=== PATIENT | female | born 1950 | race Caucasian/White ===

== ENCOUNTER → 2016-05-29 | Outpatient (CLI) | payer MEDICAID ==
[2016-05-29 10:25] LABS: ALT 34 U/L (9-52); AST 36 U/L (14-36); Alkaline Phosphatase 81 U/L (38-126); Anion Gap 11 mmol/L; Blood Urea Nitrogen 16 mg/dL (7-17); Calcium 9.2 mg/dL (8.4-10.2); Carbon Dioxide 25 mmol/L (22-30); Chloride 109 mmol/L (98-107); Cholesterol 136 mg/dL (<200); Glucose 88 mg/dL (74-99); HDL Cholesterol 73 mg/dL (40-60); Non-African American GFR(MDRD) >60 (>60 ml/min/1.73 sqM); Potassium 4.4 mmol/L (3.5-5.1); Sodium 145 mmol/L (137-145); Total Bilirubin 0.7 mg/dL (0.2-1.3); Triglycerides 82 mg/dL (<150)
== END ==
LOC: LABWHC1 09:13
PROVIDERS: ATTEND Internal Medicine Interventional Cardiology
DX: E78.5 Hyperlipidemia, unspecified (principal); E55.9 Vitamin D deficiency, unspecified
CPT/HCPCS: 36415; 80053; 80061; 82306

== ENCOUNTER → 2016-12-29 | Outpatient (CLI) | payer MEDICAID ==
--- NOTE | 2017-01-01 10:31 | MM ---
Reason for exam: screening (asymptomatic). Last mammogram was performed 1 year and 2 months ago. History: Patient is postmenopausal and has history of other cancer at age 52. Physical Findings: A clinical breast exam by your physician is recommended on an annual basis and results should be correlated with mammographic findings. MG 3D Screening Mammo W/Cad Bilateral CC and MLO view(s) were taken. Prior study comparison: October 29, 2015, bilateral MG screening mammo w CAD. October 27, 2014, bilateral MG screening mammo w CAD. The breast tissue is heterogeneously dense. This may lower the sensitivity of mammography. Stable benign calcifications. There is no discrete abnormality. No significant changes when compared with prior studies. ASSESSMENT: Benign, BI-RAD 2 RECOMMENDATION: Routine screening mammogram of both breasts in 1 year.
== END | disposition home or self-care (01) ==
LOC: RADMAMWWP 08:47
PROVIDERS: ATTEND Obstetrics & Gynecology
DX: Z12.31 Encounter for screening mammogram for malignant neoplasm of breast (principal)
CPT/HCPCS: 77063; G0202

== ENCOUNTER → 2017-02-20 | Outpatient (CLI) | payer MEDICAID ==
--- NOTE | 2017-02-20 15:08 | US ---
EXAMINATION TYPE: US pelvic complete DATE OF EXAM: 02/20/2017 COMPARISON: NONE CLINICAL HISTORY: Z01.411 POSS RT OVARIAN MASS. Right pelvic mass per patients physician, 2, para 2 TECHNIQUE: Transabdominal (TA) Date of LMP: 16+ years ago EXAM MEASUREMENTS: Uterus: 7.3 x 3.1 x 5.3 cm Endometrial Stripe: 0.4 cm Right Ovary: 2.4 x 1.6 x 2.1 cm Left Ovary: 2.4 x 1.3 x 1.6 cm 1. Uterus: anteverted, heterogeneous 2. Endometrium: wnl 3. Right Ovary: wnl 4. Left Ovary: wnl 5. Bilateral Adnexa: wnl 6. Posterior cul-de-sac: wnl IMPRESSION: 1. No evidence of ovarian mass. 2. Echo pattern of the uterine myometrium is somewhat heterogeneous which is nonspecific. No discrete fibroids are seen. Correlate clinically and if necessary with MRI.
== END | disposition home or self-care (01) ==
LOC: RADUSWWP 14:31
PROVIDERS: ATTEND Obstetrics & Gynecology
DX: Z01.411 Encounter for gynecological examination (general) (routine) with abnormal findings (principal)
CPT/HCPCS: 76856

== ENCOUNTER → 2017-06-26 | Outpatient (CLI) | payer MEDICAID ==
[2017-06-26 10:19] LABS: HCT 42.2 % (34.0-46.0); HGB 14.1 gm/dL (11.4-16.0); MCHC 33.5 g/dL (31.0-37.0); MCV 92.5 fL (80.0-100.0); Platelet Count 246 k/uL (150-450); RBC 4.56 m/uL (3.80-5.40); RDW 12.6 % (11.5-15.5); WBC 6.3 k/uL (3.8-10.6)
[2017-06-26 10:32] LABS: ALT 32 U/L (9-52); AST 33 U/L (14-36); Albumin 4.2 g/dL (3.5-5.0); Alkaline Phosphatase 82 U/L (38-126); Anion Gap 12 mmol/L; Blood Urea Nitrogen 16 mg/dL (7-17); Calcium 9.2 mg/dL (8.4-10.2); Carbon Dioxide 27 mmol/L (22-30); Chloride 106 mmol/L (98-107); Cholesterol 131 mg/dL (<200); Glucose 90 mg/dL (74-99); HDL Cholesterol 60 mg/dL (40-60); LDL Cholesterol,Calculated 54 mg/dL (0-99); Potassium 4.1 mmol/L (3.5-5.1); Sodium 145 mmol/L (137-145); Total Bilirubin 0.4 mg/dL (0.2-1.3); Total Protein 6.5 g/dL (6.3-8.2); Triglycerides 85 mg/dL (<150)
== END ==
LOC: LABWHC1 09:45
PROVIDERS: ATTEND Nurse Practitioner Adult Health
DX: E78.5 Hyperlipidemia, unspecified (principal); I10 Essential (primary) hypertension
CPT/HCPCS: 36415; 80053; 80061; 85027

== ENCOUNTER → 2018-01-14 | Outpatient (CLI) | payer MEDICAID ==
--- NOTE | 2018-01-15 13:12 | MM ---
Reason for exam: screening (asymptomatic). Last mammogram was performed 1 year and 1 month ago. History: Patient is postmenopausal and has history of other cancer at age 52. Physical Findings: A clinical breast exam by your physician is recommended on an annual basis and results should be correlated with mammographic findings. MG 3D Screening Mammo W/Cad Bilateral CC and MLO view(s) were taken. Prior study comparison: December 29, 2016, bilateral MG 3d screening mammo w/cad. October 29, 2015, bilateral MG screening mammo w CAD. There are scattered fibroglandular densities. No significant changes when compared with prior studies. ASSESSMENT: Benign, BI-RAD 2 RECOMMENDATION: Routine screening mammogram of both breasts in 1 year.
== END | disposition home or self-care (01) ==
LOC: RADMAMWWP 15:24
PROVIDERS: ATTEND Obstetrics & Gynecology
DX: Z12.31 Encounter for screening mammogram for malignant neoplasm of breast (principal)
CPT/HCPCS: 77063; 77067

== ENCOUNTER → 2018-12-16 | Outpatient (CLI) | payer MEDICAID ==
[2018-12-16 17:44] LABS: Chol/HDL Ratio 2.44
== END | disposition home or self-care (01) ==
LOC: LABWHC1 09:34
PROVIDERS: ATTEND Internal Medicine Interventional Cardiology
DX: E78.2 Mixed hyperlipidemia (principal)
CPT/HCPCS: 36415; 80061; 84450; 84460

== ENCOUNTER → 2019-10-03 | Outpatient (CLI) | payer MEDICAID ==
--- NOTE | 2019-10-03 18:39 | ECHOF ---
Referral Reason:I25.10 I10 hypertension MEASUREMENTS -------- HEIGHT: 165.1 cm WEIGHT: 63.5 kg BP: RVIDd: 2.7 cm (< 3.3) IVSd: 1.3 cm (0.6 - 1.1) LVIDd: 3.2 cm (3.9 - 5.3) LVPWd: 1.2 cm (0.6 - 1.1) IVSs: 1.4 cm LVIDs: 2.6 cm LVPWs: 1.4 cm LA Diam: 3.0 cm (2.7 - 3.8) LAESV Index (A-L): 21.08 ml/m Ao Diam: 3.5 cm (2.0 - 3.7) AV Cusp: 1.9 cm (1.5 - 2.6) MV EXCURSION: 18.525 mm (> 18.000) MV EF SLOPE: 102 mm/s (70 - 150) EPSS: 0.3 cm MV E Azar: 0.81 m/s MV DecT: 140 ms MV A Azar: 0.82 m/s MV E/A Ratio: 0.99 RAP: 5.00 mmHg RVSP: 27.81 mmHg FINDINGS -------- Sinus rhythm. This was a technically good study. The left ventricular size is normal. There is mild concentric left ventricular hypertrophy. Overa ll left ventricular systolic function is normal with, an EF between 55 - 60 %. The right ventricle is normal in size. The left atrial size is normal. The right atrial size is normal. The aortic valve is trileaflet, and appears structurally normal. No aortic stenosis or regurgitation. Mild mitral regurgitation is present. Mild tricuspid regurgitation present. Right ventricular systolic pressure is normal at < 35 mmHg. Trace/mild (physiologic) pulmonic regurgitation. The aortic root size is normal. There is no pericardial effusion. CONCLUSIONS -------- 1. The left ventricular size is normal. 2. There is mild concentric left ventricular hypertrophy. 3. Overall left ventricular systolic function is normal with, an EF between 55 - 60 %. 4. The right ventricle is normal in size. 5. The left atrial size is normal. 6. The right atrial size is normal. 7. Mild mitral regurgitation is present. 8. Mild tricuspid regurgitation present. 9. Trace/mild (physiologic) pulmonic regurgitation. ENERGY EFFICIENCY ENGINEER: Sosa Suazo RDCS
== END | disposition home or self-care (01) ==
LOC: RADECHMAIN 10:28
PROVIDERS: ATTEND Internal Medicine Interventional Cardiology
DX: I08.1 Rheumatic disorders of both mitral and tricuspid valves (principal); I25.10 Atherosclerotic heart disease of native coronary artery without angina pectoris
CPT/HCPCS: 93306

== ENCOUNTER → 2019-10-23 | Outpatient (CLI) | payer OTHER ==
--- NOTE | 2019-10-23 15:29 | XR ---
EXAMINATION TYPE: XR pelvis AP view DATE OF EXAM: 10/23/2019 CLINICAL HISTORY: pain TECHNIQUE: Single view the pelvis is submitted. FINDINGS: No evidence for fracture, dislocation or bony lesion. Joint spaces are well-preserved. S I joints appear symmetric. IMPRESSION: 1. No acute fracture or dislocation seen. ICD 10 NO FRACTURE, INITIAL EVALUATION
--- NOTE | 2019-10-23 15:31 | XR ---
EXAMINATION TYPE: XR knee complete RT DATE OF EXAM: 10/23/2019 CLINICAL HISTORY: pain TECHNIQUE: Three views of the right knee are obtained. COMPARISON: None. FINDINGS: There is no acute fracture/dislocation. Prepatellar soft tissue swelling. Small suprapatel lar joint effusion. IMPRESSION: There is no acute fracture or dislocation.ICD 10 NO FRACTURE, INITIAL EVALUATION
== END | disposition home or self-care (01) ==
LOC: RADXRMAIN 15:08
PROVIDERS: ATTEND Emergency Medicine
DX: S30.0XXA Contusion of lower back and pelvis, initial encounter (principal); S80.01XA Contusion of right knee, initial encounter
CPT/HCPCS: 72170

== ENCOUNTER → 2020-02-20 | Outpatient (CLI) | payer MEDICAID, OTHER ==
--- NOTE | 2020-02-20 11:04 | XR ---
EXAMINATION TYPE: XR knee complete RT DATE OF EXAM: 02/20/2020 COMPARISON: None HISTORY: Pain contusion TECHNIQUE: Right knee is examined in 3 views FINDINGS: There may be some mild narrowing of the lateral compartment joint space. Very minimal media l tibial plateau spurring is present. Medial femoral condylar spurring is present. Soft tissues appea r normal. Patellofemoral joint space is preserved. No joint effusion is evident. IMPRESSION: 1. No acute or subacute osseous abnormality. 2. Very minimal degenerative joint changes right knee
== END | disposition home or self-care (01) ==
LOC: RADXRMAIN 10:41
PROVIDERS: ATTEND Emergency Medicine
DX: M17.11 Unilateral primary osteoarthritis, right knee (principal)

== ENCOUNTER → 2020-02-23 | Outpatient (CLI) | payer OTHER ==
--- NOTE | 2020-02-24 06:42 | MR ---
EXAMINATION TYPE: MR knee RT wo con DATE OF EXAM: 02/23/2020 COMPARISON: Right knee x-ray February 20, 2020. HISTORY: Contusion of right knee with pain. TECHNIQUE: Multiplanar, multisequence imaging of the right knee is performed without IV contrast. FINDINGS: MEDIAL MENISCUS: Anterior and posterior horns are intact without tear. LATERAL MENISCUS: Posterior horn is intact without tear. Anterior horn shows horizontal increased sig nal does not extend to articular surface, accessory ligament felt present versus intrasubstance tear. CRUCIATE LIGAMENTS: The anterior and posterior cruciate ligaments are intact and unremarkable. COLLATERAL LIGAMENTS: The medial collateral ligament and lateral collateral ligament complex are inta ct and unremarkable. EXTENSOR MECHANISM: Visualized quadriceps and patellar tendons are intact. EFFUSION: Small suprapatellar joint effusion. POPLITEAL CYST : Moderate to large size popliteal/li cyst measuring 5.8 cm long axis sagittal imag e 13. TRICOMPARTMENT SPACES: There is fairly severe patellofemoral compartment joint space loss with mild/m oderate spurring. More moderate narrowing medial tibiofemoral compartment with brti-bs-[id number] spurr ing. Mild narrowing and spurring lateral tibiofemoral compartment. CARTILAGE: Significant chondromalacia patella with full-thickness cartilaginous loss along inferior h darwin of the posterior patellar pole. Cartilaginous thinning medial tibiofemoral compartment without fu ll-thickness loss. BONE MARROW SIGNAL: There is a heterogeneous diminished T1 and increased T2 signal anterior tibial as pect distal lateral femoral condyle and areas of increased T2 signal posterior inferior patellar pole at site of full-thickness cartilaginous loss. OTHER: No additional significant abnormality is appreciated. IMPRESSION: 1. Advanced patellofemoral joint arthropathy as detailed above. 2. Moderate to large sized popliteal cyst. 3. No full-thickness Meniscal or ligamentous tear. 4. Small suprapatellar joint effusion.
== END | disposition home or self-care (01) ==
LOC: RADMRIMAIN 16:09
PROVIDERS: ATTEND Emergency Medicine
DX: M12.861 Other specific arthropathies, not elsewhere classified, right knee (principal); M71.21 Synovial cyst of popliteal space [Baker], right knee

== ENCOUNTER → 2020-08-06 | Outpatient (CLI) | payer MEDICAID ==
[2020-08-06 16:28] LABS: Chol/HDL Ratio 2.26; LDL Cholesterol,Calculated 58.4 mg/dL (0.0-131.0); VLDL Calculation 18.6 mg/dL (5.00-40.00)
== END | disposition home or self-care (01) ==
LOC: LABWHC1 10:20
PROVIDERS: ATTEND Internal Medicine Interventional Cardiology
DX: E78.2 Mixed hyperlipidemia (principal)
CPT/HCPCS: 36415; 80061; 84450; 84460

== ENCOUNTER → 2020-09-28 | Outpatient (CLI) | payer MEDICAID ==
--- NOTE | 2020-09-28 15:16 | BD ---
EXAMINATION TYPE: Axial Bone Density DATE OF EXAM: 09/28/2020 COMPARISON: Prior DEXA bone scan July 14, 2013 CLINICAL HISTORY: Postmenopausal female Height: 63.5 inches Weight: 143.9 pounds FRAX RISK QUESTIONS: Alcohol (3 or more units per day): no Family History (Parent hip fracture): no Glucocorticoids (More than 3mos): no (Ex: prednisone, prednisolone, methylprednisolone, dexamethasone, and hydrocortisone). History of Fracture in Adulthood: no Secondary Osteoporosis: 1. Type 1 Diabetes: no 2. Hyperthyroidism: no 3. Menopause before 45: no 4. Malnutrition: no 5. Chronic liver disease: no Rheumatoid Arthritis: no Current Tobacco Use: no RISK FACTORS HISTORY OF: Surgery to Spine/Hip(right/left)/Wrist (right/left): no Family History of Osteoporosis: no Active: yes Diet low in dairy products/other sources of calcium: no Postmenopausal woman: age 52 Lost more than 2 inches in height since high school: no MEDICATIONS: atorvastatin, Cartia XT, vitamins Additional History: EXAM MEASUREMENTS: Bone mineral densitometry was performed using the [employer] System. Bone mineral density as measured about the Lumbar spine is: ----- L1-L4(G/cm2): 1.247 T Score Values are as follows: ----- L2: 0.3 ----- L3: -0.1 ----- L4: 1.3 ----- L1-L4: 0.6 Bone mineral density has: increased 3.4 % since study of: 07.14.2013 Bone mineral density about the R hip (g/cm2): 0.898 Bone mineral density about the L hip (g/cm2): 0.854 T Score values are as follows: -----R Neck: -1.0 -----L Neck: -1.3 -----R Total: -0.3 -----L Total: -0.1 Bone mineral density has: increased 0.3 % since study of: 07.14.2013 IMPRESSION: Osteopenia (T Score between -2.5 and -1) femoral neck level left hip now identified. There is slightly increased risk of fracture and the patient may be considered for treatment. Re-Screen 2-5 years. NOTE: T-SCORE=SD OF THE YOUNG ADULT MEAN.
--- NOTE | 2020-09-29 11:44 | MM ---
Reason for exam: screening (asymptomatic). Last mammogram was performed 2 years and 8 months ago. History: Patient is postmenopausal and has history of other cancer at age 52. Physical Findings: A clinical breast exam by your physician is recommended on an annual basis and results should be correlated with mammographic findings. MG Screening Mammo w CAD Bilateral CC and MLO view(s) were taken. Prior study comparison: January 14, 2018, bilateral MG 3d screening mammo w/cad. December 29, 2016, bilateral MG 3d screening mammo w/cad. The breast tissue is heterogeneously dense. This may lower the sensitivity of mammography. There is chronic nodularity in the right breast, anterior, stable since 2018. There is no discrete abnormality. ASSESSMENT: Benign, BI-RAD 2 RECOMMENDATION: Routine screening mammogram of both breasts in 1 year.
== END | disposition home or self-care (01) ==
LOC: RADMAMWWP 13:49
PROVIDERS: ATTEND Obstetrics & Gynecology
DX: Z12.31 Encounter for screening mammogram for malignant neoplasm of breast (principal); N95.1 Menopausal and female climacteric states; M85.80 Other specified disorders of bone density and structure, unspecified site
CPT/HCPCS: 77067; 77080

== ENCOUNTER → 2020-11-22 | Outpatient (CLI) | payer MEDICAID ==
--- NOTE | 2020-11-22 16:17 | MR ---
EXAMINATION TYPE: MR knee LT wo con DATE OF EXAM: 11/22/2020 COMPARISON: None. HISTORY: Left knee pain, pain behind knee, painful kneecap, and locking for 2 years TECHNIQUE: Multiplanar, multisequence imaging of the left knee is performed without IV contrast. FINDINGS: MEDIAL MENISCUS: Anterior and posterior horns are intact without tear. LATERAL MENISCUS: Anterior and posterior horns are intact without tear. CRUCIATE LIGAMENTS: The anterior and posterior cruciate ligaments are intact and unremarkable. COLLATERAL LIGAMENTS: The medial collateral ligament and lateral collateral ligament complex are inta ct and unremarkable. EXTENSOR MECHANISM: Visualized quadriceps and patellar tendons are intact. EFFUSION: No significant suprapatellar joint effusion. POPLITEAL CYST: Small popliteal/li cyst. TRICOMPARTMENT SPACES: Mild to moderate tricompartment joint space loss without significant spurring. CARTILAGE: Chondromalacia patella with thinning of articular cartilage along the inferior aspect of t he posterior patellar pole. Some fissuring and cartilaginous loss of the articular cartilage medial t ibiofemoral compartment. BONE MARROW SIGNAL: No focal abnormal marrow signal is appreciated. OTHER: No additional significant abnormality is appreciated. IMPRESSION: No meniscal or ligamentous tear is seen. Mild to moderate tricompartment degenerative tatiana nges. Small popliteal cyst.
== END | disposition home or self-care (01) ==
LOC: RADMRIMAIN 14:47
PROVIDERS: ATTEND Orthopaedic Surgery
DX: M17.12 Unilateral primary osteoarthritis, left knee (principal)

== ENCOUNTER 2020-12-21 08:02 | Day surgery (SDC) | payer MEDICAID ==
[2020-12-20 08:38] VITALS: BMI 24.0
[~2020-12-21 08:02] MED LIST: LACTATED RINGERS 1,000 ML IV SCH
[2020-12-21 08:36] VITALS: TEMP 97.4
[2020-12-21] MEDS ORDERED: MIDAZOLAM 2 MG/2 ML VIAL ONE (08:49)
[2020-12-21] MEDS ORDERED: PROPOFOL 10 MG/ML 20 ML VIAL IV ONE (08:49)
[2020-12-21] MEDS ORDERED: fentaNYL (PF) 50 MCG/ML 2 ML AMP ONE (08:49)
--- NOTE | 2020-12-21 08:52 | P.GSHP ---
History of Present Illness H&P Date: 12/21/20 Chief Complaint: Colon cancer screening Patient here today for colonoscopy. Last colonoscopy 3-5 years ago. Patient has a personal history of polyps unknown type. Patient is a history of colon cancer in her mother. Mild constipation at times. Past Medical History Past Medical History: Cancer, Chest Pain / Angina, Hyperlipidemia, Osteoarthritis (OA) Additional Past Medical History / Comment(s): SKIN CANCER, PAST HX ANGINA History of Any Multi-Drug Resistant Organisms: None Reported Past Surgical History: Tonsillectomy, Tubal Ligation Additional Past Surgical History / Comment(s): D&C Past Anesthesia/Blood Transfusion Reactions: No Reported Reaction Smoking Status: Former smoker - Past Family History Mother Family Medical History: Cancer Additional Family Medical History / Comment(s): COLON CANCER, Medications and Allergies Home Medications Medication Instructions Recorded Confirmed Type Ascorbic Acid [Vitamin C] 1,000 mg PO DAILY 12/20/20 12/20/20 History Aspirin 81 mg PO DAILY 12/20/20 12/20/20 History Atorvastatin [Lipitor] 20 mg PO HS 12/20/20 12/20/20 History Calcium Carbonate [Calcium] 600 mg PO HS 12/20/20 12/20/20 History Cholecalciferol (Vitamin D3) 125 mcg PO DAILY 12/20/20 12/20/20 History [Vitamin D3 (125 MCG = 5,000 IU)] Diltiazem HCl [Diltiazem HCl 24Hr 120 mg PO HS 12/20/20 12/20/20 History ER] Multivitamins, Thera [Multivitamin 1 tab PO DAILY 12/20/20 12/20/20 History (formulary)] Allergies Allergy/AdvReac Type Severity Reaction Status Date / Time No Known Allergies Allergy Verified 12/21/20 08:30 Surgical - Exam Vital Signs Temp Pulse Resp BP Pulse Ox 97.4 F L 70 16 150/80 97 12/21/20 08:35 12/21/20 08:35 12/21/20 08:35 12/21/20 08:35 12/21/20 08:35 Physical exam: General: Well-developed, well-nourished HEENT: Normocephalic, sclerae nonicteric Abdomen: Nontender, nondistended Extremities: No edema Neuro: Alert and oriented Assessment and Plan (1) Colon cancer screening Narrative/Plan: Will proceed with colonoscopy Current Visit: Yes Status: Acute Code(s): Z12.11 - ENCOUNTER FOR SCREENING FOR MALIGNANT NEOPLASM OF COLON SNOMED Code(s): 145480750
--- NOTE | 2020-12-21 09:05 | P.PCN ---
Date of Procedure: 12/21/20 Procedure(s) Performed: PREOPERATIVE DIAGNOSIS: Colon cancer screening, family history POSTOPERATIVE DIAGNOSIS: Ascending colon polyp PROCEDURE: Colonoscopy with snare polypectomy ANESTHESIA: MAC SURGEON: Andrea Diane M.D. SPECIMENS: Ascending colon polyp ENDOSCOPIC PROCEDURE: The patient was placed on the endoscopy table in the left decubitus position. The Olympus colonoscope was inserted into the anus and passed under direct visualization to the base of the cecum. The appendiceal orifice was visualized. From that point the scope was slowly withdrawn inspecting all surfaces carefully. There were no neoplastic inflammatory or polypoid lesions throughout the cecum. In the ascending colon a 1 cm sessile polyp was removed in a piecemeal fashion using the snare with cautery technique. The entire polyp appeared to be removed. The remainder of the ascending transverse descending sigmoid and rectum was normal. There was mild left-sided diverticulosis. Digital rectal examination was normal. The patient was taken to the recovery room in stable condition per anesthesia guidelines. RECOMMENDATIONS: Resume diet. Await biopsy results. Likely will recommend repeat colonoscopy 2-3 years because of the piecemeal removal of this moderate sized polyp.
[2020-12-21 10:03] VITALS: BP 146/76; PULSE 63; RESP 18
== END 2020-12-21 10:11 | disposition home or self-care (01) ==
LOC: ORWHC2ENDO 08:02
PROVIDERS: ATTEND Surgery
DX: Z12.11 Encounter for screening for malignant neoplasm of colon (principal); D12.2 Benign neoplasm of ascending colon; E78.5 Hyperlipidemia, unspecified; M19.90 Unspecified osteoarthritis, unspecified site; Z79.82 Long term (current) use of aspirin; Z80.0 Family history of malignant neoplasm of digestive organs; Z85.828 Personal history of other malignant neoplasm of skin; Z87.891 Personal history of nicotine dependence
CPT/HCPCS: 45385; 88305; J2250; J3010; J2704

== ENCOUNTER → 2021-02-10 | Outpatient (CLI) | payer MEDICAID ==
--- NOTE | 2021-02-11 05:20 | MR ---
EXAMINATION TYPE: MR lumbar spine wo con DATE OF EXAM: 02/10/2021 COMPARISON: None HISTORY: Low back pain that radiates down left leg for over a year. Multiplanar multi echo imaging of the lumbar spine without contrast. Lumbar vertebrae have normal alignment. There is degenerative disc space narrowing from L1 to L5 wher e there is mild posterior disc bulging from L1 to L5. There is developmentally adequate spinal canal and no spinal stenosis. There is no lumbar paraspinal mass. There is no compression fracture. Sacroil iac joints are intact. I see no focal bone destruction. The neural foramina are fairly well maintaine d. IMPRESSION: Spondylotic changes with multilevel mild posterior disc bulging. No spinal stenosis. No fracture.
== END | disposition home or self-care (01) ==
LOC: RADMRIMAIN 16:33
PROVIDERS: ATTEND Orthopaedic Surgery Orthopaedic Surgery of the Spine
DX: M51.26 Other intervertebral disc displacement, lumbar region (principal)
CPT/HCPCS: 72148

== ENCOUNTER → 2021-04-25 | Outpatient (CLI) | payer MEDICAID ==
--- NOTE | 2021-04-26 05:05 | MR ---
EXAMINATION TYPE: MR knee RT wo con DATE OF EXAM: 04/25/2021 COMPARISON: 02/23/2020 HISTORY: Synovial cyst of right knee, pain behind knee, painful kneecap, locking, and swelling for 2 months Multiplanar multiecho imaging of the right knee without contrast. The anterior and posterior cruciate ligaments appear intact. There is mild knee joint effusion. There is a large popliteal cyst measuring approximately 8 x 3 cm. There is some degenerative thinning of t he posterior horn of the medial meniscus. There are small vertical tear posterior horn medial meniscu s. The lateral meniscus appears intact. There is 5 mm area of edema in the subchondral anterior shrestha lla. There is 8 mm area of edema in the proximal tibia at the base of the tibial spines anteriorly an d posteriorly. There is hypertrophic spurring of the femoral and tibial condyles. The collateral liga ments appear intact. There is narrowing of the medial joint space. There is no evidence of a fracture . IMPRESSION: Osteoarthritis with narrowing of the medial joint space. There is vertical tear and degenerative thin livia in the medial meniscus posterior horn. Large popliteal cyst. Cyst is increased compared to old exam. There is some edema at the base of the tibial spines consistent with bone bruise and improved compared to old exam.
== END | disposition home or self-care (01) ==
LOC: RADMRIMAIN 18:25
PROVIDERS: ATTEND Orthopaedic Surgery
DX: M71.21 Synovial cyst of popliteal space [Baker], right knee (principal); M17.11 Unilateral primary osteoarthritis, right knee

== ENCOUNTER 2021-05-19 08:28 | Day surgery (SDC) | payer MEDICAID ==
[~2021-05-19 08:28] MED LIST changes: -LACTATED RINGERS 1,000 ML IV SCH; +TRIAMCINOLONE ACETONIDE 40 MG/ML 1 ML VIAL INTRABURSA STA
[2021-05-19 08:54] VITALS: RESP 16; TEMP 98.2
[2021-05-19 10:05] VITALS: BP 155/81; PULSE 59
--- NOTE | 2021-05-19 13:03 | US ---
EXAMINATION TYPE: US guided asp/inj major joint, right Soto's cyst DATE OF EXAM: 05/19/2021 Comparison: Correlation MRI knee 04/25/2021 Clinical History: 70-year-old female M71.21 Procedure: 1. Ultrasound of the right popliteal fossa 2. Aspiration of the Soto's cyst with ultrasound guidance. 3. Injection of Kenalog with ultrasound guidance. Technique: The procedure, risks, and alternatives, were discussed with the patient, who requested za t we proceed. The consent form was signed, and teach-back occurred. The site/side of the procedure wa s marked with a line with participation by the patient. The accompanying paperwork was verified for c onsistency. A directed history and physical exam was performed prior to the procedure. Medication rec onciliation was performed by ancillary personnel. A critical pause was performed with assisting jacque carvalho just prior to the procedure and the patient's identity was confirmed using 2 identifiers. Imagin g guidance was utilized to select the precise skin entry point just prior to the procedure. Initial ultrasound shows a large Soto's cyst measuring at least 6.5 cm long. There may be some leaka ge along the caudal aspect. The right popliteal fossa was prepped and draped in the usual sterile fashion and local 1% lidocaine anesthesia was instilled. Under ultrasound guidance, an 18 gauge spinal needle was introduced into right-sided Soto's cyst. Ul trasound confirmed the position of the needle tip. Under ultrasound surveillance, aspiration yielded 40 mL of normal yellow, sticky synovial fluid. The Soto's cyst completely collapsed. Subsequently, 1 mL of Kenalog-40 and 1 mL of 1% lidocaine were injected into the collapsed Soto's cyst. Additional 2 mL of lidocaine was infiltrated along the needle path as it was retracted out. The needle was completely removed. The patient tolerated the procedure well. There were no immediate complications. After the procedure, the patient's condition was unchanged. Es timated blood loss was minimal. The patient was instructed on routine postprocedure precautions, incl uding projecting the area to prevent infection. IMPRESSION: Successful ultrasound guided aspiration (yielding 40 mL of normal synovial fluid) and subsequent ster oid injection into the collapsed right Soto's cyst. No immediate complication.
== END 2021-05-19 10:13 | disposition home or self-care (01) ==
LOC: RADPROMAIN 08:28
PROVIDERS: ATTEND Orthopaedic Surgery
DX: M71.21 Synovial cyst of popliteal space [Baker], right knee (principal); M17.11 Unilateral primary osteoarthritis, right knee; M23.321 Other meniscus derangements, posterior horn of medial meniscus, right knee
CPT/HCPCS: 20611; J3301

== ENCOUNTER 2021-08-31 12:18 | Day surgery (SDC) | payer MEDICAID ==
[2021-08-30 11:45] VITALS: BMI 24.9
[~2021-08-31 12:18] MED LIST changes: +DEXAMETHASONE SOD PHOSPHATE 4 MG/ML 1 ML VIAL IV ONE; +HYDROmorphone 0.5 MG/0.5 ML SYRINGE IVP PRN; +LACTATED RINGERS 1,000 ML IV SCH; +ONDANSETRON 4 MG/2 ML VIAL IVP ONE; -TRIAMCINOLONE ACETONIDE 40 MG/ML 1 ML VIAL INTRABURSA STA
[2021-08-31] MEDS ORDERED: GLYCOPYRROLATE 0.2 MG/ML 2 ML VIAL ONE (13:53)
[2021-08-31] MEDS ORDERED: fentaNYL (PF) 50 MCG/ML 2 ML AMP ONE (13:53)
[2021-08-31] MEDS ORDERED: LIDOCAINE 2% INJ 20 MG/ML (2 ML VIAL) ONE (13:53)
[2021-08-31] MEDS ORDERED: PROPOFOL 10 MG/ML 20 ML VIAL IV ONE (13:53)
[2021-08-31 15:02] VITALS: TEMP 96.6
[2021-08-31 15:04] VITALS: RESP 16
[2021-08-31 16:14] VITALS: BP 154/76; PULSE 61
--- NOTE | 2021-08-31 18:00 | P.OP ---
Date of Procedure: 08/31/21 Preoperative Diagnosis: 1. Right knee medial meniscus tear 2. Right knee popliteal synovial cyst Postoperative Diagnosis: 1. Right knee posterior horn medial meniscus tear 2. Knee osteoarthritis with full-thickness cartilage loss in the medial and patellofemoral compartments 3. Right knee popliteal synovial Soto cyst Procedure(s) Performed: Right knee arthroscopy with partial medial meniscectomy Anesthesia: KIMI Surgeon: Ernesto Gaytan Estimated Blood Loss (ml): 10 Pathology: none sent Condition: stable Disposition: PACU Indications for Procedure: The patient is very pleasant previous healthy 70-year-old female with a long- standing history of problems in her right knee. I've been seeing her for this for the past year. She is had medial joint line tenderness, mechanical symptoms and recurrent knee effusions. She was initially managed nonsurgically with occ asional corticosteroid injections, activity modification, physical therapy, and an oral anti-inflammatory pain medications. She also developed a symptomatically Soto's cyst. She had an MRI which showed a degenerative medial meniscus tear. She also had a large synovial cyst in the popliteal fossa. We discussed different treatment options including continued nonsurgical treatment versus an arthroscopy. She had significant discomfort from her popliteal cyst. We discussed that an arthroscopy and meniscectomy may improve this, but she also may need the cyst aspirated and injected with steroid by interventional radiology. She requested proceeding with an arthroscopy. She understands the potential limitations of this and the potential risks including the 70 not limited to risks of anesthesia, infection, damage to blood vessels or nerves, iatrogenic joint damage, continued or worsened pain, recurrence, worsening cyst, dissatisfaction with surgery, need for further surgery, DVT, PE, other medical complications, and possibly loss of life or limb. Description of Procedure: Patient was identified and proper holding and the correct right leg was marked my initials. I reviewed the consent form with the patient and all of her questions were answered. The patient was brought back to the operating room. She was positioned on the OR table where general anesthetic, preoperative antibiotics, and Chantix epigastric were given. A tourniquet was applied the proximal aspect of the right leg. The right leg was placed in a well wetzel. The left leg was padded and the foot of table was dropped. The right leg was then prepped and draped in the standard sterile fashion. Prior to starting surgery timeout was performed identifying the correct patient, operative extremity, and procedure. The patient's leg was then elevated exsanguinated with an Esmarch bandage and the tourniquet was inflated to 250 mmHg. I began by outlining the anterior anatomy on the knee and marking out a standard anteromedial and anterolateral portal. The anterolateral portal was made with a scalpel and a blunt trocar and arthroscope were inserted and patellar pouch. On inspection of the patellofemoral joint there was full-thickness cartilage loss on the femoral trochlea and on the undersurface of the patella. The scope was then brought down the medial gutter into the medial compartment. I verified that the spinal needle had the correct trajectory and a stab incision was made with a scalpel over the anteromedial portal. A blunt probe was then inserted into the knee. The medial meniscus was probed and found to have a displaced tear of the posterior horn of the medial meniscus. There was also full- thickness cartilage loss of the medial femoral condyle. Using a combination of straight biter and arthroscopic shaver the meniscus was abraded back to a stable margin. The scope and probe were then placed into the notch and the ACL was found to be intact. The knee was placed in the figure 4 and the lateral compartment showed no evidence of arthritis or meniscus tear. The arthroscope was then brought down the lateral gutter and into the popliteal hiatus. The arthroscope was then brought back into the subpatellar pouch and the joint was lavaged. At this point all instruments removed. The portals were closed with interrupted nylon sutures. Half percent Marcaine was injected into the knee and at the portal sites. Sterile dressing was applied. The tourniquet was let down. The patient was carefully transferred off the operating room table onto a gurney, extubated, and brought to recovery having tolerated the procedure well. Plan: The patient is going to discharge home as an outpatient. She can weight- bear as tolerated on her right leg. She can change her dressing in 48 hours. After changing her dressing is okay to shower but she should not soak her incision. Once she has done showering she should pat incisions dry and keep them covered with Band-Aids. She was given pain medication. She'll be treated with aspirin 81 mg twice a day for DVT prophylaxis. She will need a wound check in 2 weeks. X-rays are not needed at that time.
== END 2021-08-31 16:31 | disposition home or self-care (01) ==
LOC: OR 12:18
PROVIDERS: ATTEND Orthopaedic Surgery
DX: M23.203 Derangement of unspecified medial meniscus due to old tear or injury, right knee (principal); M71.21 Synovial cyst of popliteal space [Baker], right knee; I11.9 Hypertensive heart disease without heart failure; E78.5 Hyperlipidemia, unspecified; R63.5 Abnormal weight gain; Z97.3 Presence of spectacles and contact lenses; Z98.51 Tubal ligation status; Z98.890 Other specified postprocedural states; Z82.49 Family history of ischemic heart disease and other diseases of the circulatory system; Z87.891 Personal history of nicotine dependence; Z79.82 Long term (current) use of aspirin; Z79.899 Other long term (current) drug therapy; Z79.1 Long term (current) use of non-steroidal anti-inflammatories (NSAID)
CPT/HCPCS: 29881; J1100; J0690; J2405; J3010; J2704; J2001

== ENCOUNTER 2021-10-21 08:40 | Day surgery (SDC) | payer MEDICAID ==
[2021-10-21] MEDS ORDERED: TRIAMCINOLONE ACETONIDE 40 MG/ML 1 ML VIAL INTRABURSA ONE (09:24)
[2021-10-21 09:31] VITALS: RESP 16; TEMP 97.8
[2021-10-21 10:41] VITALS: BP 143/73; PULSE 91
--- NOTE | 2021-10-21 12:11 | US ---
EXAM: US guided asp/inj major joint DATE OF EXAM: 10/21/2021 10:27 AM COMPARISON STUDIES: Clinical History: 70-year-old female M71.21 Procedure: 1. Ultrasound of the right popliteal fossa 2. Aspiration of the Soto's cyst with ultrasound guidance. 3. Injection of Kenalog with ultrasound guidance. Technique: The procedure, risks, and alternatives, were discussed with the patient, who requested za t we proceed. The consent form was signed, and teach- back occurred. The site/side of the procedure w as marked with a line with participation by the patient. The accompanying paperwork was verified for consistency. A directed history and physical exam was performed prior to the procedure. Medication re conciliation was performed by ancillary personnel. A critical pause was performed with sasha ibrahim just prior to the procedure and the patient's identity was confirmed using 2 identifiers. Imagi ng guidance was utilized to select the precise skin entry point just prior to the procedure. Initial ultrasound shows a large Soto's cyst measuring at least 6.5 cm long. There may be some leaka ge along the caudal aspect. The right popliteal fossa was prepped and draped in the usual sterile fas hion and local 1% lidocaine anesthesia was instilled. Under ultrasound guidance, an One Step needle w as introduced into right- sided Soto's cyst. Ultrasound confirmed the position of the needle tip. Un melissa ultrasound surveillance, aspiration yielded 40 mL of normal yellow, sticky synovial fluid. The Ba ker's cyst completely collapsed. Subsequently, 1 mL of Kenalog-40 and 1 mL of 1% lidocaine were injec benny into the collapsed Soto's cyst. Additional 2 mL of lidocaine was infiltrated along the needle pa th as it was retracted out. The catheter was completely removed. The patient tolerated the procedure well. There were no immediate complications. After the procedure, the patient's condition was unchang ed. Estimated blood loss was minimal. IMPRESSION: Successful ultrasound guided aspiration (yielding 40 mL of normal synovial fluid) and sub sequent steroid injection into the collapsed right Soto's cyst. No immediate complication.
== END 2021-10-21 10:32 | disposition home or self-care (01) ==
LOC: RADPROMAIN 08:40
PROVIDERS: ATTEND Orthopaedic Surgery
DX: M71.21 Synovial cyst of popliteal space [Baker], right knee (principal); M17.11 Unilateral primary osteoarthritis, right knee; M23.321 Other meniscus derangements, posterior horn of medial meniscus, right knee; Z79.82 Long term (current) use of aspirin; Z79.899 Other long term (current) drug therapy; Z80.0 Family history of malignant neoplasm of digestive organs
CPT/HCPCS: 20611; J3301

== ENCOUNTER → 2022-03-06 | Outpatient (CLI) | payer MEDICAID ==
--- NOTE | 2022-03-07 08:38 | MM ---
Reason for Exam: Screening (asymptomatic). Last mammogram was performed 1 year(s) and 5 month(s) ago. Patient History: Menarche at age 12. First Full-Term at age 19. Postmenopausal. Other cancer, age 52. Risk Values: Tonya 5 year model risk: 1.3%. NCI Lifetime model risk: 3.5%. Prior Study Comparison: 10/27/2014 Bilateral Screening Mammogram, [facility]. 10/29/2015 Bilateral Screening Mammogram, [facility]. 12/29/2016 Bilateral Screening Mammogram, [facility]. 01/14/2018 Bilateral Screening Mammogram, [facility]. 09/28/2020 Bilateral Screening Mammogram, [facility]. Tissue Density: The breast tissue is heterogeneously dense. This may lower the sensitivity of mammography. Findings: Analyzed By CAD. Asymmetric density upper outer right breast on the. Additional views are recommended. No suspicious calcifications present. Overall Assessment: Incomplete: need additional imaging evaluation, BI-RAD 0 Management: Diagnostic Mammogram of the right breast. A clinical breast exam by your physician is recommended on an annual basis and results should be correlated with mammographic findings. Electronically signed and approved by: Gurinder Melo M.D. Radiologis
== END | disposition home or self-care (01) ==
LOC: RADMAMWWP 09:46
PROVIDERS: ATTEND Obstetrics & Gynecology
DX: Z12.31 Encounter for screening mammogram for malignant neoplasm of breast (principal); Z78.0 Asymptomatic menopausal state
CPT/HCPCS: 77067

== ENCOUNTER → 2022-03-09 | Outpatient (CLI) | payer MEDICAID ==
--- NOTE | 2022-03-09 14:14 | MM ---
Reason for Exam: Additional evaluation requested from abnormal screening. Last screening mammogram was performed less than 1 month ago. Patient History: Menarche at age 12. First Full-Term at age 19. Postmenopausal. Risk Values: Tonya 5 year model risk: 1.3%. NCI Lifetime model risk: 3.5%. Prior Study Comparison: 01/14/2018 Bilateral Screening Mammogram, [facility]. 09/28/2020 Bilateral Screening Mammogram, [facility]. 03/06/2022 Bilateral MG screening mammo w CAD, [facility]. Tissue Density: Right: There are scattered fibroglandular densities. Findings: Analyzed By CAD. There is a focal asymmetry upper outer quadrant right breast does not persist on additional views. No significant change from prior exams. Overall Assessment: Negative, BI-RAD 1 Management: Screening Mammogram of both breasts in 1 year. 1. Patient should continue monthly self breast exams. 2. A clinical breast exam by your physician is recommended on an annual basis. 3. This exam should not preclude additional follow-up of suspicious palpable abnormalities. Results were given to the patient verbally at the time of exam. Electronically signed and approved by: Vika Wagner M.D. Radiologist
== END | disposition home or self-care (01) ==
LOC: RADMAMWWP 13:43
PROVIDERS: ATTEND Obstetrics & Gynecology
DX: R92.8 Other abnormal and inconclusive findings on diagnostic imaging of breast (principal); Z78.0 Asymptomatic menopausal state
CPT/HCPCS: 77065

== ENCOUNTER → 2023-02-16 | Outpatient (CLI) | payer MEDICAID ==
[2023-02-16 16:44] LABS: ALT 30 U/L (8-44); AST 35 U/L (13-35); Chol/HDL Ratio 2.28 Ratio; LDL Cholesterol,Calculated 64.5 mg/dL (0.0-131.0); VLDL Calculation 14.56 mg/dL (5.00-40.00)
== END | disposition home or self-care (01) ==
LOC: LABWHC1 10:20
PROVIDERS: ATTEND Internal Medicine Interventional Cardiology
DX: E78.00 Pure hypercholesterolemia, unspecified (principal)
CPT/HCPCS: 36415; 80061; 84450; 84460

== ENCOUNTER → 2023-03-16 | Outpatient (CLI) | payer MEDICAID ==
--- NOTE | 2023-03-19 09:35 | MM ---
Reason for Exam: Screening (asymptomatic). Last mammogram was performed 1 year(s) and 1 month(s) ago. Patient History: Menarche at age 12. First Full-Term at age 19. Postmenopausal. Risk Values: Tonya 5 year model risk: 1.3%. NCI Lifetime model risk: 3.3%. Prior Study Comparison: 09/28/2020 Bilateral Screening Mammogram, [facility]. 03/06/2022 Bilateral MG screening mammo w CAD, [facility]. 03/09/2022 Right MG work up mamm w CAD RT, [facility]. Tissue Density: The breast tissue is heterogeneously dense. This may lower the sensitivity of mammography. Findings: Analyzed By CAD. There is no suspicious group of microcalcifications or new suspicious mass in either breast. Benign calcifications. Overall Assessment: Benign, BI-RAD 2 Management: Screening Mammogram of both breasts in 1 year. . Patient should continue monthly self-breast exams. A clinical breast exam by your physician is recommended on an annual basis. This exam should not preclude additional follow-up of suspicious palpable abnormalities. Note on Tonya scores and lifetime risk: 1. A Tonya score greater than 3% is considered moderate risk. If this is the case, consider specialist referral to assess eligibility for a risk reducing agent. 2. If overall lifetime risk for the development of breast cancer is 20% or higher, the patient may qualify for future screening with alternating mammogram and breast MRI. Electronically signed and approved by: José Miguel Truong M.D. Radiologis
== END | disposition home or self-care (01) ==
LOC: RADMAMWWP 08:21
PROVIDERS: ATTEND Obstetrics & Gynecology
DX: Z12.31 Encounter for screening mammogram for malignant neoplasm of breast (principal); Z78.0 Asymptomatic menopausal state
CPT/HCPCS: 77067

== ENCOUNTER → 2023-03-21 | Outpatient (CLI) | payer MEDICAID ==
--- NOTE | 2023-03-21 13:49 | MM ---
Reason for Exam: Additional evaluation requested from abnormal screening. Last screening mammogram was performed less than 1 month ago. Patient History: Menarche at age 12. First Full-Term at age 19. Postmenopausal. Risk Values: Tonya 5 year model risk: 1.3%. NCI Lifetime model risk: 3.3%. Prior Study Comparison: 03/06/2022 Bilateral MG screening mammo w CAD, [facility]. 03/09/2022 Right MG work up mamm w CAD RT, [facility]. 03/16/2023 Bilateral MG screening mammo w CAD, [facility]. Tissue Density: Left: There are scattered fibroglandular densities. Findings: Analyzed By CAD. Area of concern/asymmetry compresses out on spot compression imaging. No suspicious masses, calcifications or distortions. Overall Assessment: Negative, BI-RAD 1 Management: Screening Mammogram of both breasts in 1 year. Results were given to the patient verbally at the time of exam. Patient should continue monthly self-breast exams. A clinical breast exam by your physician is recommended on an annual basis. This exam should not preclude additional follow-up of suspicious palpable abnormalities. Note on Tonya scores and lifetime risk: 1. A Tonya score greater than 3% is considered moderate risk. If this is the case, consider specialist referral to assess eligibility for a risk reducing agent. 2. If overall lifetime risk for the development of breast cancer is 20% or higher, the patient may qualify for future screening with alternating mammogram and breast MRI. Electronically signed and approved by: Davion Lugo DO
== END | disposition home or self-care (01) ==
LOC: RADMAMWWP 13:21
PROVIDERS: ATTEND Obstetrics & Gynecology
DX: R92.322 Mammographic fibroglandular density, left breast (principal); Z78.0 Asymptomatic menopausal state
CPT/HCPCS: 77061; 77065

== ENCOUNTER 2023-04-17 09:06 | Day surgery (SDC) | payer MEDICAID ==
[2023-04-12 14:57] VITALS: BMI 23.1
[~2023-04-17 09:06] MED LIST changes: -DEXAMETHASONE SOD PHOSPHATE 4 MG/ML 1 ML VIAL IV ONE; -HYDROmorphone 0.5 MG/0.5 ML SYRINGE IVP PRN; -LACTATED RINGERS 1,000 ML IV SCH; +LIDOCAINE 1% (10MG/ML) FOR IV START INTRADERMA PRN; -ONDANSETRON 4 MG/2 ML VIAL IVP ONE
[2023-04-17] MEDS: LACTATED RINGERS 1,000 ML IV SCH (10:09)
[2023-04-17 10:23] VITALS: RESP 16; TEMP 97.6
[2023-04-17] MEDS ORDERED: PROPOFOL 10 MG/ML 20 ML VIAL IV ONE (10:35)
[2023-04-17] MEDS ORDERED: LIDOCAINE 1% INJ 10MG/ML (20 ML MDV) ONE (10:35)
--- NOTE | 2023-04-17 10:41 | P.GSHP ---
History of Present Illness H&P Date: 04/17/23 Chief Complaint: Screening with history of polyps 70-year-old female here for colonoscopy. Last colonoscopy 2.5 years ago. Patient had a larger polyp in the ascending colon that was removed. Here for follow-up on that. She has had some constipation issues. Past Medical History Past Medical History: Cancer, Chest Pain / Angina, Hyperlipidemia, Osteoarthritis (OA) Additional Past Medical History / Comment(s): torn meniscus & Soto's cyst rt knee,hx SKIN CANCER, PAST HX ANGINA History of Any Multi-Drug Resistant Organisms: None Reported Past Surgical History: Orthopedic Surgery, Tonsillectomy, Tubal Ligation Additional Past Surgical History / Comment(s): Soto's cyst removed rt knee approx 3 mos ago, D&C , surgery to repair tear in right knee Past Anesthesia/Blood Transfusion Reactions: No Reported Reaction Additional Past Anesthesia/Blood Transfusion Reaction / Comment(s): no hx blood transfusion Smoking Status: Former smoker - Past Family History Mother Family Medical History: Cancer Additional Family Medical History / Comment(s): COLON CANCER, Medications and Allergies Home Medications Medication Instructions Recorded Confirmed Type Ascorbic Acid [Vitamin C] 1,000 mg PO DAILY 12/20/20 04/12/23 History Aspirin 81 mg PO HS 12/20/20 04/12/23 History Atorvastatin [Lipitor] 20 mg PO HS 12/20/20 04/17/23 History Calcium Carbonate [Calcium] 1,200 mg PO HS 12/20/20 04/12/23 History Cholecalciferol (Vitamin D3) 125 mcg PO DAILY 12/20/20 04/12/23 History [Vitamin D3 (125 MCG = 5,000 IU)] Multivitamins, Thera [Multivitamin 1 tab PO DAILY 12/20/20 04/12/23 History (formulary)] dilTIAZem HCL [Diltiazem HCl 24Hr 120 mg PO HS 12/20/20 04/17/23 History ER] Losartan Potassium [Cozaar] 25 mg PO HS 05/06/21 04/17/23 History HYDROcodone/APAP 5-325MG [[place] 1 tab PO Q6HR PRN 7 Days #28 tab 08/31/21 04/17/23 Rx 5-325] Allergies Allergy/AdvReac Type Severity Reaction Status Date / Time No Known Allergies Allergy Verified 04/17/23 10:11 Surgical - Exam Vital Signs Temp Pulse Resp BP Pulse Ox 97.6 F 70 16 195/90 96 04/17/23 10:12 04/17/23 10:12 04/17/23 10:12 04/17/23 10:12 04/17/23 10:12 Physical exam: General: Well-developed, well-nourished HEENT: Normocephalic, sclerae nonicteric Abdomen: Nontender, nondistended Extremities: No edema Neuro: Alert and oriented Assessment and Plan (1) Colon cancer screening Narrative/Plan: Will proceed with colonoscopy at this time. Current Visit: No Status: Acute Code(s): Z12.11 - ENCOUNTER FOR SCREENING FOR MALIGNANT NEOPLASM OF COLON SNOMED Code(s): 981703713
--- NOTE | 2023-04-17 11:08 | P.PCN ---
Date of Procedure: 04/17/23 Procedure(s) Performed: PREOPERATIVE DIAGNOSIS: Colon cancer screening POSTOPERATIVE DIAGNOSIS: Ascending colon polyp, sigmoid colon polyp, diverticulosis, hemorrhoids PROCEDURE: Colonoscopy with snare polypectomy ANESTHESIA: MAC SURGEON: Andrea Diane M.D. SPECIMENS: Polyps ENDOSCOPIC PROCEDURE: The patient was placed on the endoscopy table in the left decubitus position. The Olympus colonoscope was inserted into the anus and passed under direct visualization to the base of the cecum. The appendiceal orifice was visualized. From that point the scope was slowly withdrawn inspecting all surfaces carefully. There were no neoplastic inflammatory or polypoid lesions throughout the cecum. In the ascending colon a very small polyp was seen and removed using a snare with cautery technique. This appeared to be different than the prior polyp. The transverse and proximal descending colon appeared normal. At 50 cm thought to represent the distal descending or proximal sigmoid colon there was a pedunculated polyp that was removed using the snare with cautery technique. The remainder of the sigmoid and rectum was normal. The patient had moderate scattered left-sided diverticulosis. The patient had small internal and external hemorrhoids at the anus. The patient was taken to the recovery room in stable condition per anesthesia guidelines. RECOMMENDATIONS: Await biopsy results. Anticipate repeat colonoscopy 3 to 5 years.
[2023-04-17 11:34] VITALS: BP 157/66; PULSE 55
== END 2023-04-17 11:53 | disposition home or self-care (01) ==
LOC: ORWHC2ENDO 09:06
PROVIDERS: ATTEND Surgery
DX: Z12.11 Encounter for screening for malignant neoplasm of colon (principal); D12.2 Benign neoplasm of ascending colon; D12.5 Benign neoplasm of sigmoid colon; K57.30 Diverticulosis of large intestine without perforation or abscess without bleeding; K64.4 Residual hemorrhoidal skin tags; K64.8 Other hemorrhoids; Z86.010 Personal history of colon polyps; Z80.0 Family history of malignant neoplasm of digestive organs; Z87.891 Personal history of nicotine dependence; Z79.82 Long term (current) use of aspirin; Z79.899 Other long term (current) drug therapy
CPT/HCPCS: 88305; 45385; J2001; J2704

== ENCOUNTER → 2023-05-18 | Outpatient (CLI) | payer MEDICAID ==
--- NOTE | 2023-05-22 07:28 | BD ---
EXAMINATION TYPE: Axial Bone Density DATE OF EXAM: 05/18/2023 CLINICAL HISTORY: 72 years old Female. ICD-10 CODE: M85.851 OTH DISRD OF BONE DENSITY AND STRUCTURE, R Height: 63 Weight: 134.7 FRAX RISK QUESTIONS: Alcohol (3 or more units per day): no Family History (Parent hip fracture): no Glucocorticoids (More than 3mos): no History of Fracture in Adulthood: no Secondary Osteoporosis: 1. Type 1 Diabetes: no 2. Hyperthyroidism: no 3. Menopause before 45: no 4. Malnutrition: no 5. Chronic liver disease: no Rheumatoid Arthritis: no Current Tobacco Use: no RISK FACTORS HISTORY OF: Hip Fracture (Right/Left): no Spine Fracture: no History of Wrist Fracture: no Surgery to Spine/Hip(right/left)/Wrist (right/left): no MEDICATIONS: Thyroid Medications: no Osteoporosis Medications: no EXAM MEASUREMENTS: Bone mineral densitometry was performed using the [employer]. Bone mineral density as measured about the Lumbar spine is: ----- L1-L4(G/cm2): 1.261 T Score Values are as follows: ----- L1: 0.1 ----- L2: 0.1 ----- L3: 0.1 ----- L4: 1.6 ----- L1-L4: 0.7 Z Score Values are as follows: ----- L1: 2.0 ----- L2: 1.9 ----- L3: 2.0 ----- L4: 3.4 ----- L1-L4: 2.5 Bone mineral density has: increased 1.1 % since study of: 09/28/2020 Bone mineral density about the R hip (g/cm2): 0.957 Bone mineral density about the L hip (g/cm2): 0.966 T Score values are as follows: -----R Neck: -1.0 -----L Neck: -1.2 -----R Total: -0.3 -----L Total: -0.5 Z Score values are as follows: -----R Neck: 0.69 -----L Neck: 0.7 -----R Total: 1.4 -----L Total: 1.2 Bone mineral density has: decreased -3.1 % since study of: 09/28/2020 FRAX%s: The graph provided illustrates a 9.6 % chance for a major osteoporotic fx and a 1.4% chance f or the hips probability for fx in 10 years time. IMPRESSION: Normal (Values between +1 and -1 indicate normal bone mass). Consider repeating this study in 5 year s or sooner if there is some new clinical indication. NOTE: T-SCORE=SD OF THE YOUNG ADULT MEAN.
== END | disposition home or self-care (01) ==
LOC: RADBDWWP 15:27
PROVIDERS: ATTEND Internal Medicine
DX: M85.89 Other specified disorders of bone density and structure, multiple sites (principal)
CPT/HCPCS: 77080

== ENCOUNTER → 2023-05-31 | Outpatient (CLI) | payer MEDICAID ==
--- NOTE | 2023-06-01 16:21 | CTL ---
EXAMINATION TYPE: CT Low Dose Lung DATE OF EXAM ORDERED: 05/31/2023 HISTORY: . Lung cancer screening CT DLP: 58.[address] CTDI: 1.57 mGy Automated exposure control for dose reduction was used. SCREENING VISIT: Initial COMPARISON: None TECHNIQUE: Low dose computed tomography scan was performed through the chest at 1 mm thick sections a nd reconstructed images in the coronal plane at [address] DIAGNOSTIC QUALITY: Satisfactory FINDINGS: LUNG NODULES: None. LUNGS: COPD: Severity: None Fibrosis: Severity: None Lymph nodes: None Other findings: None RIGHT PLEURAL SPACE: Effusion: None Calcification: None Thickening: None Pneumothorax: None LEFT PLEURAL SPACE: Effusion: None Calcification: None Thickening: None Pneumothorax: None HEART: Heart Size: Normal Coronary calcification: None Pericardial effusion: None OTHER FINDINGS: Upper abdomen: Normal Bony thorax: Normal Supraclavicular region: Normal Other: Ascending thoracic aorta at the level the main pulmonary artery measures 3.5 cm. The main pul monary artery at the bifurcation measures 2.6 cm. IMPRESSION: 1. No suspicious changes to suggest primary or metastatic neoplasm FOLLOW UP CT CHEST RECOMMENDATION: Follow up low dose CT chest one year CT LUNG RAD: Lung-Rad 1 Negative
== END | disposition home or self-care (01) ==
LOC: RADCTMAIN 13:23
PROVIDERS: ATTEND Internal Medicine
DX: Z12.2 Encounter for screening for malignant neoplasm of respiratory organs (principal); Z87.891 Personal history of nicotine dependence
CPT/HCPCS: 71271

== ENCOUNTER → 2023-11-03 | Outpatient (CLI) | payer MEDICAID ==
[2023-11-04 10:27] LABS: Thyroid Peroxidase Antibodies 16.5 U/mL (0.0-33.0)
== END | disposition home or self-care (01) ==
LOC: LABWHC1 09:30
PROVIDERS: ATTEND Internal Medicine
DX: E03.9 Hypothyroidism, unspecified (principal)
CPT/HCPCS: 36415; 84432; 84439; 84443; 84481; 85652; 86376

== ENCOUNTER → 2024-03-03 | Outpatient (CLI) | payer MEDICAID ==
[2024-03-03 15:00] LABS: Basophils # (A) 0.11 X 10*3/uL (0.00-0.10); Basophils % (A) 1.8 %; Eosinophils # (A) 0.25 X 10*3/uL (0.04-0.35); Eosinophils % (A) 4.1 %; HCT 40.9 % (37.2-46.3); HGB 13.3 g/dL (12.0-15.0); Lymphocytes # (A) 2.02 X 10*3/uL (0.90-5.00); Lymphocytes % (A) 33.1 %; MCH 30.3 pg (27.0-32.0); MCHC 32.5 g/dL (32.0-37.0); MCV 93.2 FL (80.0-97.0); Mean Platelet Volume 10.8 FL (9.5-12.2); Monocytes % (A) 9.8 %; NRBC Per 100 WBC 0 X 10*3/uL (0.00-0.01); Neutrophils # (A) 3.12 X 10*3/uL (1.80-7.70); Platelet Count 258 X 10*3/uL (140-440); RBC 4.39 X 10*6/uL (4.10-5.20); RDW 13.1 % (11.5-14.5); WBC 6.11 X 10*3/uL (4.50-10.00)
[2024-03-03 15:24] LABS: ALT 20 U/L (8-44); AST 29 U/L (13-35); Albumin 4.4 g/dL (3.8-4.9); Albumin/Globulin Ratio 1.91 Ratio (1.60-3.17); Alkaline Phosphatase 123 U/L (41-126); BUN/Creat Ratio 20.88 Ratio (12.00-20.00); Blood Urea Nitrogen 16.7 mg/dL (9.0-27.0); Carbon Dioxide 25.2 mmol/L (21.6-31.8); Chloride 105 mmol/L (96-109); Chol/HDL Ratio 2.01 Ratio; Creatine Kinase 107 U/L (26-186); Globulin 2.3 g/dL (1.6-3.3); Glucose 94 mg/dL (70-110); LDL Cholesterol,Calculated 56.2 mg/dL (0.0-131.0); Magnesium 1.9 mg/dL (1.5-2.4); Potassium 4.2 mmol/L (3.5-5.5); Sodium 142 mmol/L (135-145); Total Bilirubin 0.4 mg/dL (0.3-1.2); Total Protein 6.7 g/dL (6.2-8.2); Uric Acid 4.4 mg/dL (2.9-7.7)
[2024-03-03 15:32] LABS: Appearance,Urine Clear (Clear); Bilirubin,Urine Negative (Negative); Blood,Urine Negative (Negative); Color,Urine Yellow (Yellow); Ketones,Urine Negative (Negative); Nitrite,Urine Negative (Negative); PH, Urine 6.5; Specific Gravity,Urine 1.006 (1.001-1.030); Urobilinogen,Urine 0.2 E.U./DL
[2024-03-03 15:40] LABS: Bacteria,Urine None Seen (None Seen)
== END | disposition home or self-care (01) ==
LOC: LABWHC1 08:53
PROVIDERS: ATTEND Internal Medicine
DX: I10 Essential (primary) hypertension (principal); E03.9 Hypothyroidism, unspecified; E55.9 Vitamin D deficiency, unspecified; E78.2 Mixed hyperlipidemia
CPT/HCPCS: 36415; 80053; 80061; 81001; 82306; 82550; 83735; 84443; 84481; 84550; 85025

== ENCOUNTER → 2024-06-25 | Outpatient (CLI) | payer MEDICAID ==
--- NOTE | 2024-06-25 14:30 | CTL ---
EXAMINATION TYPE: CT Low Dose Lung DATE OF EXAM ORDERED: 06/25/2024 COMPARISON: 05/31/2023 CLINICAL INDICATION: Female, 73 years old with history of Z87.891 HX SMOKER Z12.2 LUNG CA SCR; PHH, F ormer smoker, quit 10 years ago, no concerns, Lung cancer screening, History of Smoking/tobacco use. TECHNIQUE: Low dose computed tomography scan was performed through the chest at 1 mm thick sections a nd reconstructed images in multiple planes at 1 mm and [address] DLP: [address] CTDI: 1.61 mGy Automated exposure control for dose reduction was used. CT DIAGNOSTIC QUALITY: Satisfactory EXAMINATION TYPE: CT Low Dose Lung DATE OF EXAM ORDERED: 06/25/2024 CLINICAL INDICATION: Female, 73 years old with history of Z87.891 HX SMOKER Z12.2 LUNG CA SCR, histor y of tobacco use, Lung cancer screening CT DLP: [address] CTDI: 1.61 mGy Automated exposure control for dose reduction was used. Comparison: None TECHNIQUE: Low dose computed tomography scan was performed through the chest at 1 mm thick sections a nd reconstructed images in multiple planes at 1 mm and [address] DIAGNOSTIC QUALITY: Satisfactory FINDINGS: There are a few micronodules with no new or suspicious lung mass or nodule. There is no airspace consolidation or abnormal interstitial density. There is no mediastinal, hilar or axillary adenopathy. There is no pleural effusion, pleural thickening or pneumothorax. No focal osseous lesions are seen. Limited scans the upper abdomen reveals no gross abnormality IMPRESSION: 1. Lung rads Category 1 negative. Continue routine screening at yearly intervals. 2. No acute cardiopulmonary disease. [facility], , 06/25/2024 2:27 PM
== END | disposition home or self-care (01) ==
LOC: RADCTMAIN 13:48
PROVIDERS: ATTEND Internal Medicine
DX: Z12.2 Encounter for screening for malignant neoplasm of respiratory organs (principal); Z87.891 Personal history of nicotine dependence
CPT/HCPCS: 71271

== ENCOUNTER → 2024-08-22 | Outpatient (CLI) | payer MEDICAID ==
--- NOTE | 2024-08-22 14:26 | XR ---
EXAMINATION TYPE: XR chest 2V DATE OF EXAM: 08/22/2024 2:08 PM COMPARISON: None CLINICAL INDICATION: Female, 73 years old with history of J18.9 ACUTE PNEUMONIA; [facility] TECHNIQUE: XR chest 2V Frontal and lateral views of the chest. FINDINGS: Lungs/Pleura: There is no evidence of pleural effusion, focal consolidation, or pneumothorax. Pulmonary vascularity: Unremarkable. Heart/mediastinum: Cardiomediastinal silhouette is unremarkable. Musculoskeletal: No acute osseous pathology. Other findings: None IMPRESSION: No acute cardiopulmonary disease/process. [facility], , 08/22/2024 2:24 PM
[2024-08-22 18:56] LABS: Basophils # (A) 0.07 X 10*3/uL (0.00-0.10); Basophils % (A) 0.6 %; Eosinophils # (A) 0.20 X 10*3/uL (0.04-0.35); Eosinophils % (A) 1.6 %; HCT 40.3 % (37.2-46.3); HGB 13.3 g/dL (12.0-15.0); Immature Grans, Automated 0.90 %; Lymphocytes # (A) 2.94 X 10*3/uL (0.90-5.00); Lymphocytes % (A) 23.7 %; MCH 30.4 pg (27.0-32.0); MCHC 33.0 g/dL (32.0-37.0); MCV 92.0 FL (80.0-97.0); Monocytes # (A) 0.85 X 10*3/uL (0.20-1.00); Monocytes % (A) 6.8 %; NRBC Per 100 WBC 0 X 10*3/uL (0.00-0.01); Neutrophils # (A) 8.25 X 10*3/uL (1.80-7.70); Neutrophils % (A) 66.4 %; Platelet Count 287 X 10*3/uL (140-440); RBC 4.38 X 10*6/uL (4.10-5.20); RDW 13.5 % (11.5-14.5); WBC 12.42 X 10*3/uL (4.50-10.00)
[2024-08-22 19:22] LABS: ALT 24 U/L (8-44); AST 23 U/L (13-35); Albumin 3.9 g/dL (3.8-4.9); Albumin/Globulin Ratio 2.05 Ratio (1.60-3.17); Alkaline Phosphatase 107 U/L (41-126); Anion Gap 9.10 mmol/L (4.00-12.00); BUN/Creat Ratio 35.25 Ratio (12.00-20.00); Blood Urea Nitrogen 28.2 mg/dL (9.0-27.0); Calcium 8.4 mg/dL (8.7-10.3); Carbon Dioxide 23.9 mmol/L (21.6-31.8); Chloride 109 mmol/L (96-109); Globulin 1.9 g/dL (1.6-3.3); Glucose 81 mg/dL (70-110); Potassium 4.1 mmol/L (3.5-5.5); Sodium 142 mmol/L (135-145); Total Protein 5.8 g/dL (6.2-8.2)
== END | disposition home or self-care (01) ==
LOC: LABWHC1 13:25
DX: E03.9 Hypothyroidism, unspecified (principal); J18.9 Pneumonia, unspecified organism
CPT/HCPCS: 36415; 71046; 80053; 84439; 84443; 85025